=== PATIENT | male | born 1945 | race Caucasian/White ===

== ENCOUNTER 2024-12-10 10:09 | Day surgery (SDC) | payer OTHER ==
[2024-12-10] MEDS ORDERED: Lactated Ringers 1,000 ML IV ONE (10:50)
[2024-12-10 11:00] VITALS: RESP 18; TEMP 98.5
[2024-12-10] MEDS: TETRACAINE 0.5% STERI-UNIT SOL OP ONE ×2 (11:09→11:10)
[2024-12-10] MEDS: Ak-Dilate OPHTHALMIC*** 0.71 ML, Cyclogyl 1% OPHTH SOL 0.71 ML, GATIFLOXACIN 0.5% OPHTH... OP SCH (11:10)
[2024-12-10] MEDS: Lactated Ringers 1,000 ML IV SCH (11:10)
[2024-12-10] MEDS: Sodium Chloride 0.9% 1000 ML 1,000 ML IV SCH (11:10)
[2024-12-10] MEDS: DUONEB 0.5-3 MG/3 ml Neb IH ONE (11:13)
[2024-12-10 11:26] LABS: ALBUMIN 3.8 g/dL (3.5-5.0); BILIRUBIN,TOTAL 0.9 mg/dL (0.2-1.3); Calcium 8.8 mg/dL (8.4-10.2); Creatinine 1 2.15 mg/dL (0.66-1.25); EST GLOMERULAR FILTRATION RATE 30.4 ML/MIN; Potassium 3.3 mmol/L (3.5-5.1); Total Protein 7.5 g/dL (6.3-8.2)
[2024-12-10] MEDS ORDERED: BETADINE 5% OPHTHALMIC 30 ML OP NR (12:30)
[2024-12-10] MEDS ORDERED: TRIAMCINOLONE 15 MG/ML INJ INTRAOP NR (12:30)
[2024-12-10] MEDS ORDERED: VIGAMOX/BSS 0.15% SYR IO NR (12:30)
[2024-12-10] MEDS ORDERED: Epinephrine Preservative Free 1 MG/ML INTRAOP NR (12:30)
[2024-12-10] MEDS ORDERED: DEXMEDETOMIDINE 80 MCG/20ML-NS IV NR (12:30)
[2024-12-10] MEDS ORDERED: DEXTENZA OP NR (12:30)
[2024-12-10] MEDS ORDERED: Zofran 4 MG/2 ML VIAL IV PRN (12:45)
[2024-12-10] MEDS ORDERED: SUBLIMAZE 100 MCG/2 ML ONE (13:41)
[2024-12-10] MEDS ORDERED: propofoL IV ONE (13:41)
[2024-12-10] MEDS ORDERED: Versed 2 MG/2 ML Injection ONE (13:42)
[2024-12-10] MEDS: ACETAZOLAMIDE 250 MG TABLET PO ONE (14:30)
[2024-12-10 14:32] VITALS: O2SAT 95
[2024-12-10 14:39] VITALS: BP 133/93; PULSE 67
== END 2024-12-10 14:47 | disposition home or self-care (01) ==
LOC: SDC 10:09
PROVIDERS: ATTEND Ophthalmology
DX: H25.811 Combined forms of age-related cataract, right eye (principal); J44.9 Chronic obstructive pulmonary disease, unspecified
CPT/HCPCS: 36415; 80053; 93005; 94640; C1780; J0171; J1096; J2250; J2704; J3010; A9270-GY